=== PATIENT | male | born 1980 | race Caucasian/White ===

== ENCOUNTER → 2018-10-09 | Outpatient (CLI) | payer OTHER ==
--- NOTE | 2018-10-09 14:58 | US ---
EXAMINATION TYPE: US extremity nonvasc mass RT DATE OF EXAM: 10/09/2018 COMPARISON: NONE CLINICAL HISTORY: R22.31 Rt Forearm Mass. Right upper forearm palpable lump x couple years Right upper forearm at patient's area of concern: 1.9 x 1.0 x 2.7cm superficial isoechoic non vascula r soft tissue area seen. IMPRESSION: 1. Nonspecific ultrasound finding. Lipoma could be considered. 2. Consider MRI with contrast to further evaluate this finding. An etiology such as liposarcoma could be considered.
== END | disposition home or self-care (01) ==
LOC: RADUSWWP 14:32
PROVIDERS: ATTEND Family Medicine
DX: R22.31 Localized swelling, mass and lump, right upper limb (principal)

== ENCOUNTER → 2018-10-10 | Outpatient (CLI) | payer OTHER ==
[2018-10-10 09:11] LABS: Basophils # (A) 0.1 k/uL (0-0.2); Basophils % (A) 1 %; Eosinophils # (A) 0.2 k/uL (0-0.7); Eosinophils % (A) 2 %; HCT 51.3 % (39.0-53.0); HGB 16.5 gm/dL (13.0-17.5); Lymphocytes # (A) 2.6 k/uL (1.0-4.8); Lymphocytes % (A) 31 %; MCH 28.9 pg (25.0-35.0); MCHC 32.1 g/dL (31.0-37.0); MCV 89.9 fL (80.0-100.0); Mean Platelet Volume 6.9; Monocytes # (A) 0.7 k/uL (0-1.0); Monocytes % (A) 8 %; Neutrophils # (A) 4.9 k/uL (1.3-7.7); Neutrophils % (A) 57 %; Platelet Count 330 k/uL (150-450); RBC 5.71 m/uL (4.30-5.90); RDW 13.7 % (11.5-15.5); WBC 8.6 k/uL (3.8-10.6)
[2018-10-10 17:22] LABS: Albumin 4.9 g/dL (3.80-4.90); Albumin/Globulin Ratio 2.13 (1.60-3.17); Anion Gap 9.2 mmol/L (4.00-12.00); Calcium 10.1 mg/dL (8.7-10.3); Carbon Dioxide 25.8 mmol/L (21.6-31.8); Globulin 2.3 g/dL (1.6-3.3); LDL Cholesterol,Calculated 96.2 mg/dL (0.0-131.0); Potassium 4.5 mmol/L (3.5-5.5); Total Bilirubin 0.5 mg/dL (0.3-1.2); Total Protein 7.2 g/dL (6.2-8.2); VLDL Calculation 28.8 mg/dL (5.00-40.00)
== END | disposition home or self-care (01) ==
LOC: LABWHC1 08:06
PROVIDERS: ATTEND Family Medicine
DX: G40.909 Epilepsy, unspecified, not intractable, without status epilepticus (principal); G31.84 Mild cognitive impairment of uncertain or unknown etiology
CPT/HCPCS: 36415; 80053; 80061; 80177; 82607; 84443; 85025

== ENCOUNTER 2020-04-20 15:19 | Emergency (ER) | payer MEDICARE, OTHER ==
[2020-04-20 15:29] VITALS: RESP 16; TEMP 97.7
[2020-04-20] MEDS ORDERED: LORazepam 2 MG/ML INJ IV STA (15:51)
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
[2020-04-20 16:37] LABS: Basophils # (A) 0.1 k/uL (0-0.2); Basophils % (A) 1 %; Eosinophils # (A) 0.1 k/uL (0-0.7); Eosinophils % (A) 1 %; HCT 52.5 % (39.0-53.0); HGB 17.9 gm/dL (13.0-17.5); Lymphocytes # (A) 2.1 k/uL (1.0-4.8); Lymphocytes % (A) 21 %; MCH 30.8 pg (25.0-35.0); MCV 90.5 fL (80.0-100.0); Mean Platelet Volume 6.7; Monocytes # (A) 0.8 k/uL (0-1.0); Monocytes % (A) 9 %; Neutrophils # (A) 6.5 k/uL (1.3-7.7); Neutrophils % (A) 67 %; Platelet Count 255 k/uL (150-450); RDW 12.6 % (11.5-15.5); WBC 9.7 k/uL (3.8-10.6)
[2020-04-20 16:55] LABS: ALT 61 U/L (4-49); AST 47 U/L (17-59); African American GFR (CKD) >90 (>60 ml/min/1.73 sqM); Albumin 4.9 g/dL (3.5-5.0); Alkaline Phosphatase 71 U/L (38-126); Anion Gap 16 mmol/L; Blood Urea Nitrogen 14 mg/dL (9-20); Calcium 9.7 mg/dL (8.4-10.2); Carbon Dioxide 22 mmol/L (22-30); Chloride 103 mmol/L (98-107); Glucose 96 mg/dL (74-99); Non-African American GFR(CKD) 81 (>60 ml/min/1.73 sqM); Potassium 4.2 mmol/L (3.5-5.1); Sodium 141 mmol/L (137-145); Total Bilirubin 0.4 mg/dL (0.2-1.3); Total Protein 7.9 g/dL (6.3-8.2)
[2020-04-20 16:59] VITALS: BP 136/93
[2020-04-20 17:00] LABS: Valproic Acid (Depakene) 33.1 ug/mL
--- NOTE | 2020-04-20 17:09 | CT ---
EXAMINATION TYPE: CT brain wo con DATE OF EXAM: 04/20/2020 COMPARISON: None HISTORY: seizure CT DLP: 1098.4 mGycm Automated exposure control for dose reduction was used. There is large left temporal craniotomy defect. There is enlargement of the lateral ventricles and mo re on the left side. There is encephalomalacia left frontal and temporal lobe. There is no mass effec t. There is no evidence of intracranial hemorrhage. IMPRESSION: Previous surgery. Hydrocephalus. Encephalomalacia in the left frontal and left temporal lobes. No acu te intracranial abnormality.
[2020-04-20] MEDS ORDERED: DIVALPROEX 500 MG TABLET.DR PO STA (17:35)
[2020-04-20 17:52] VITALS: PULSE 84
== END 2020-04-20 17:52 | disposition home or self-care (01) ==
LOC: EC 15:19
DX: R56.9 Unspecified convulsions (principal)
CPT/HCPCS: 36415; 93005; 80164; 80053; 80177; 85025; 70450; 99285; 96374; J2060

== ENCOUNTER → 2023-05-27 | Outpatient (CLI) | payer MEDICARE, OTHER ==
[2023-05-27 19:50] LABS: HCT 52.2 % (39.6-50.0); HGB 17.2 g/dL (13.0-17.0); MCH 30.8 pg (27.0-32.0); MCV 93.5 FL (80.0-97.0); Mean Platelet Volume 10.1 FL (9.5-12.2); NRBC Per 100 WBC 0 X 10*3/uL (0.00-0.01); Platelet Count 283 X 10*3/uL (140-440); RBC 5.58 X 10*6/uL (4.40-5.60); RDW 12.3 % (11.5-14.5); WBC 7.12 X 10*3/uL (4.50-10.00)
[2023-05-27 22:29] LABS: HIV 2 AB Non-Reactive (Non-Reactive); HIV AB P24 Non-Reactive (Non-Reactive); HIV P24 AG Non-Reactive (Non-Reactive)
== END | disposition home or self-care (01) ==
LOC: LABWHC1 13:11
PROVIDERS: ATTEND Family Medicine
DX: K75.2 Nonspecific reactive hepatitis (principal); E80.0 Hereditary erythropoietic porphyria
CPT/HCPCS: 36415; 85027; 87390; 87522

== ENCOUNTER → 2024-01-30 | Outpatient (CLI) | payer MEDICARE, OTHER | END | disposition home or self-care (01) | LOC: LABWHC1 14:24 | PROVIDERS: ATTEND Internal Medicine Gastroenterology | DX: B19.20 Unspecified viral hepatitis C without hepatic coma (principal) | CPT/HCPCS: 36415; 87522 ==

== ENCOUNTER → 2024-08-10 | Outpatient (CLI) | payer MEDICARE, OTHER | END | disposition home or self-care (01) | LOC: LABWHC1 13:10 | PROVIDERS: ATTEND Internal Medicine Gastroenterology | DX: B19.20 Unspecified viral hepatitis C without hepatic coma (principal) | CPT/HCPCS: 36415; 87522 ==